=== PATIENT | male | born 1955 | race Caucasian/White ===

== ENCOUNTER 2022-04-11 11:48 | Inpatient (IN) ==
[2022-04-11] MEDS ORDERED: Lactated Ringers 1000 ml BAG 1,000 ML IV ONE (12:13)
[2022-04-11 12:47] LABS: ABS Basophils 0.1 10^3/ul (0-0.2); ABS Eosinophils 0.3 10^3/ul (0-0.6); ABS Lymphocytes 2.3 10^3/ul (1.0-4.8); ABS Monocytes 0.6 10^3/ul (0-0.8); ABS Neutrophils 5.9 10^3/ul (1.5-7.7); Eosinophil % 3.2 %; Hematocrit 37 % (42-52); Hemoglobin 12.4 g/dL (14.0-18.0); Lymphocyte % 25.4 %; Mean Corpuscular HGB Conc 33 g/dL (31-36); Mean Corpuscular Hemoglobin 29 pg (27-31); Mean Corpuscular Volume 86 fL (80-94); Mean Platelet Volume 6.6 fL (7.4-10.4); Platelet Count 279 10^3/uL (150-450); Red Blood Count 4.34 10^6 /uL (4.18-5.48); Red Cell Distribution Width 14 % (10-15); White Blood Count 9.1 10^3/uL (3.5-10.8)
[2022-04-11 13:21] LABS: Albumin 4.1 g/dL (3.2-5.2); Albumin/Globulin Ratio 1.7 (1-3); Calcium 9.1 mg/dL (8.6-10.3); Globulin 2.4 g/dL (2-4); Magnesium 2.2 mg/dL (1.9-2.7); Potassium 4.2 mmol/L (3.5-5.0); Total Bilirubin 0.8 mg/dL (0.2-1.0); Total Protein 6.5 g/dL (6.4-8.9); eGFR CKD-EPI 73.6 (>60)
[2022-04-11] MEDS ORDERED: Iohexol 350 (CONTRAST) 500 ML MDV IV ONE (13:26)
[2022-04-11 13:35] LABS: TSH Ultra Thyroid Stim Horm 1.96 mcIU/mL (0.34-5.60)
[2022-04-11 14:48] LABS: High Sensitivity Troponin 1 Hr 13 pg/mL (<20)
[2022-04-11] MEDS ORDERED: Metoprolol Tartrate 5 mg VIAL 5 ml VIAL (1 mg/ml) IV ONE (15:16)
[2022-04-11] MEDS ORDERED: Perflutren Lipid Microsphere 3 ML VIAL ONE (16:46)
[2022-04-11] MEDS ORDERED: dilTIAZem 30 MG TAB PO SCH (18:00)
[2022-04-11] MEDS: Polyethylene Glycol 3350 17 GM PACKET PO SCH (20:56)
[2022-04-12] MEDS: Polyethylene Glycol 3350 17 GM PACKET PO SCH ×2 (08:22→21:07)
[2022-04-12] MEDS ORDERED: Digoxin IV 0.5 MG/2 ML AMP (0.25 MG/ML) IV SLOW PU ONE (09:54)
[2022-04-12 20:27] LABS: Calcium 8.6 mg/dL (8.6-10.3); eGFR CKD-EPI 59.7 (>60)
[2022-04-13 06:06] LABS: ABS Basophils 0.1 10^3/ul (0-0.2); ABS Eosinophils 0.4 10^3/ul (0-0.6); ABS Lymphocytes 2.6 10^3/ul (1.0-4.8); ABS Monocytes 0.4 10^3/ul (0-0.8); ABS Neutrophils 3.1 10^3/ul (1.5-7.7); Eosinophil % 5.3 %; Hematocrit 36 % (42-52); Hemoglobin 12.7 g/dL (14.0-18.0); Lymphocyte % 39.8 %; Mean Corpuscular HGB Conc 35 g/dL (31-36); Mean Corpuscular Hemoglobin 30 pg (27-31); Mean Corpuscular Volume 86 fL (80-94); Mean Platelet Volume 6.7 fL (7.4-10.4); Platelet Count 229 10^3/uL (150-450); Red Blood Count 4.19 10^6 /uL (4.18-5.48); Red Cell Distribution Width 14 % (10-15); White Blood Count 6.6 10^3/uL (3.5-10.8)
[2022-04-13] MEDS: Polyethylene Glycol 3350 17 GM PACKET PO SCH ×2 (07:52→20:28)
[2022-04-14 07:21] LABS: Hematocrit 42 % (42-52); Hemoglobin 14.6 g/dL (14.0-18.0); Mean Corpuscular HGB Conc 35 g/dL (31-36); Mean Corpuscular Hemoglobin 30 pg (27-31); Mean Corpuscular Volume 86 fL (80-94); Mean Platelet Volume 6.2 fL (7.4-10.4); Platelet Count 279 10^3/uL (150-450); Red Blood Count 4.88 10^6 /uL (4.18-5.48); Red Cell Distribution Width 14 % (10-15)
[2022-04-14] MEDS ORDERED: Acetaminophen IV 1 GM/100ML 100 ML IV PRN (07:59)
[2022-04-14] MEDS ORDERED: Morphine 2 MG/ML SYRINGE IV PRN (07:59)
[2022-04-14 08:09] LABS: Calcium 9.6 mg/dL (8.6-10.3); Magnesium 2.4 mg/dL (1.9-2.7); Potassium 4.2 mmol/L (3.5-5.0); eGFR CKD-EPI 66.3 (>60)
[2022-04-14] MEDS ORDERED: Naloxone 0.4 mg VIAL 0.4 mg/ml 1 ml VIAL ONE (11:47)
[2022-04-14] MEDS ORDERED: Flumazenil 0.5 mg/5 ml 0.1 MG/ML 5 ml VIAL ONE (11:47)
[2022-04-14] MEDS ORDERED: fentaNYL 100 mcg/2 ml 50 MCG/ML VIAL ONE ×2 (11:47→11:48)
[2022-04-14] MEDS ORDERED: Midazolam 5 mg/5 ml VIAL 1 mg/ml 5 ml VIAL (5 mg) ONE (11:50)
[2022-04-14] MEDS: Polyethylene Glycol 3350 17 GM PACKET PO SCH (15:50)
[2022-04-14 15:51] VITALS: BP 113/60
== END 2022-04-14 16:45 | disposition home or self-care (01) | DRG 310 ==
LOC: EDHOLD 11:48 → ED 11:48 → MEDTELE 04-12 03:58 → SUATTDRO 04-12 17:48
PROVIDERS: ADMIT Internal Medicine; ATTEND Internal Medicine